=== PATIENT | female | born 1955 | race Caucasian/White ===

== ENCOUNTER 2021-07-29 00:55 | Emergency (ER) | payer MEDICARE ==
[2021-07-29 04:03] LABS: HEMOGLOBIN 13.4 gm/dl (12.3-15.3); RED BLOOD COUNT 4.46 M/UL (4.00-5.10); WHITE BLOOD COUNT 15.6 K/UL (4.5-11.0)
[2021-07-29 04:27] LABS: BUN/CREATININE RATIO 24 (0-10)
[2021-07-29] MEDS ORDERED: HYDROCODON-ACE1 EAC6 PO (12:12)
[2021-07-29] MEDS ORDERED: AMBIEN10 MG PO (12:12)
[2021-07-29] MEDS ORDERED: MOBIC15 MG PO (12:13)
[2021-07-29] MEDS ORDERED: METHOTREXATE T2.5 MG PO (12:34)
[2021-07-29] MEDS ORDERED: ALTACE5 MG PO (12:34)
[2021-07-29] MEDS ORDERED: LANTUS SOL100 UNIT/1 SC (12:34)
[2021-07-29] MEDS ORDERED: ZANAFLEX4 MG PO (12:35)
[2021-07-29] MEDS ORDERED: ZOCOR20 MG PO (12:35)
[2021-07-29] MEDS ORDERED: HUMALOG100 UNIT/3 SC ×2 (12:36)
[2021-07-29] MEDS ORDERED: FOLIC ACID 1 MG1 MG PO (12:38)
[2021-07-29] MEDS ORDERED: HUMIRA40 MG/0.8 SQ (12:38)
[2021-07-29] MEDS ORDERED: OPCON-A EYE DRO15 ML EYEBOTH (12:39)
[2021-07-29] MEDS ORDERED: CELEXA20 MG PO (12:40)
[2021-07-29] MEDS ORDERED: ENDOCET 5-3251 EACH PO (13:33)
== END 2021-07-29 14:15 | disposition home or self-care (01) ==
LOC: ER1 00:55
PROVIDERS: Student in an Organized Health Care Education/Training Program
DX: S70.01XA Contusion of right hip, initial encounter (principal); S80.01XA Contusion of right knee, initial encounter; E10.65 Type 1 diabetes mellitus with hyperglycemia; Z20.822 Contact with and (suspected) exposure to COVID-19; F17.210 Nicotine dependence, cigarettes, uncomplicated; W01.0XXA Fall on same level from slipping, tripping and stumbling without subsequent striking against object, initial encounter; Y93.E9 Activity, other interior property and clothing maintenance; Y92.002 Bathroom of unspecified non-institutional (private) residence as the place of occurrence of the external cause
CPT/HCPCS: 70450; 71045; 73502; 73562; 73700; 80048; 82550; 82553; 82962; 84484; 85025; 93005; 94664; 96374; 96375; 99284; J1100; J1885; J2270; J2405; Q9967; U0002